=== PATIENT | male | born 1950 | race Caucasian/White ===

== ENCOUNTER 2017-12-27 10:00 | Inpatient (IN) | payer OTHER ==
[~2017-12-27] VITALS: Ht 175.3 cm; Wt 100.7 kg
[2017-12-27] MEDS ORDERED: ENALAPRIL MALEA20 MG PO (13:39)
[2017-12-27] MEDS ORDERED: COZAAR100 MG PO (13:39)
[2018-01-02] MEDS ORDERED: GABAPENTIN800 MG PO (07:56)
[2018-01-02] MEDS ORDERED: AMOX-CLAV 875-1 EACH PO (07:56)
[2018-01-02] MEDS ORDERED: DOCUSATE SODIU100 MG PO (07:56)
[2018-01-02] MEDS ORDERED: CLONAZEPAM1 MG PO (07:57)
[2018-01-02] MEDS ORDERED: PERCOCET 5-3251 EACH PO (07:57)
== END 2018-01-02 10:41 | disposition home or self-care (01) | DRG 455 ==
LOC: O/R 01-01 06:10 → SURH 01-01 10:00
PROVIDERS: Orthopaedic Surgery Orthopaedic Surgery of the Spine
PROC: 0SG1071 Fusion of 2 or more Lumbar Vertebral Joints with Autologous Tissue Substitute, Posterior Approach, Posterior Column, Open Approach (ICD-10-PCS; 2018-01-01)
PROC: 0ST20ZZ Resection of Lumbar Vertebral Disc, Open Approach (ICD-10-PCS; 2018-01-01)
PROC: 0SG10AJ Fusion of 2 or more Lumbar Vertebral Joints with Interbody Fusion Device, Posterior Approach, Anterior Column, Open Approach (ICD-10-PCS; 2018-01-01)
PROC: 07DS3ZZ Extraction of Vertebral Bone Marrow, Percutaneous Approach (ICD-10-PCS; 2018-01-01)
PROC: 0SG10A0 Fusion of 2 or more Lumbar Vertebral Joints with Interbody Fusion Device, Anterior Approach, Anterior Column, Open Approach (ICD-10-PCS; principal; 2018-01-01 15:15)
DX: M47.26 Other spondylosis with radiculopathy, lumbar region (principal); M48.061 Spinal stenosis, lumbar region without neurogenic claudication; M51.16 Intervertebral disc disorders with radiculopathy, lumbar region; I10 Essential (primary) hypertension

== ENCOUNTER 2018-01-07 19:09 | Emergency (ER) | payer OTHER ==
[~2018-01-07] VITALS: Ht 175.3 cm; Wt 99.8 kg
[~2018-01-07 19:09] MED LIST: AMOX-CLAV 875-1 EACH PO; CLONAZEPAM1 MG PO; COZAAR100 MG PO; DOCUSATE SODIU100 MG PO; ENALAPRIL MALEA20 MG PO; GABAPENTIN800 MG PO; PERCOCET 5-3251 EACH PO
== END 2018-01-08 13:55 | disposition home or self-care (01) ==
LOC: ER 19:09
DX: M79.661 Pain in right lower leg (principal); G89.18 Other acute postprocedural pain